=== PATIENT | female | born 1935 | race Caucasian/White ===

== ENCOUNTER 2017-03-02 14:00 | Inpatient (IN) | payer MEDICARE ==
[2017-03-08] MEDS ORDERED: Midazolam HCl 2 mg/2 ml Vial ONE (12:13)
[2017-03-08] MEDS ORDERED: Fentanyl 100 MCG/2 ML VIAL ONE ×5 (12:13→17:05)
[2017-03-08] MEDS ORDERED: Ropivacaine 0.2% HCl/PF 20 ML ONE (12:13)
[2017-03-08] MEDS ORDERED: Albuterol Sulfate 2.5 mg/3 ml Neb ONE (12:25)
[2017-03-08] MEDS ORDERED: Zolpidem Tartrate 5 MG TAB PO PRN (12:40)
[2017-03-08] MEDS ORDERED: Ropivacaine 0.2% 550 ML 550 ML NERVE BLCK SCH (12:40)
[2017-03-08] MEDS ORDERED: Promethazine HCl 25 MG/ML VIAL IM PRN ×2 (12:40→14:16)
[2017-03-08] MEDS ORDERED: Ondansetron HCl/PF 4 MG/2 ML Vial IVP PRN ×3 (12:40→15:08)
[2017-03-08] MEDS ORDERED: Fentanyl 100 MCG/2 ML VIAL SLOW IVP PRN ×3 (12:42→17:57)
[2017-03-08] MEDS ORDERED: HYDROcodone/Acetaminophen 10/325 mg Tablet PO PRN ×3 (13:05→17:57)
[2017-03-08] MEDS ORDERED: Lidocaine 2% PF 10 ML AMP (For Epidural Use) ONE (13:49)
[2017-03-08] MEDS ORDERED: Glycopyrrolate 0.2 MG/ML 5 ML SYRINGE ONE (13:49)
[2017-03-08] MEDS ORDERED: Propofol 200 MG/20 ML VIAL ONE (13:49)
[2017-03-08] MEDS ORDERED: Ondansetron HCl/PF 4 MG/2 ML Vial ONE (13:49)
[2017-03-08] MEDS ORDERED: Promethazine HCl 25 MG/ML VIAL SLOW IVP PRN (14:16)
[2017-03-08] MEDS ORDERED: Meperidine HCl/PF 25 MG/ML VIAL SLOW IVP PRN (15:08)
[2017-03-08] MEDS ORDERED: Bupivacaine 0.5% 10 ML VIAL ONE (16:02)
[2017-03-08] MEDS ORDERED: PROVENTIL INHALER 6.7 G (200 INHALATIONS) INH PRN (16:49)
[2017-03-08] MEDS ORDERED: OXYMORPHONE HCL 10 MG PO PRN (16:49)
[2017-03-08] MEDS ORDERED: Benzonatate 100 MG CAP PO PRN (17:00)
[2017-03-08] MEDS ORDERED: Ondansetron HCl/PF 4 MG/2 ML Vial IM PRN (17:57)
[2017-03-08] MEDS ORDERED: Acetaminophen 325 MG TAB PO PRN (17:57)
[2017-03-08] MEDS ORDERED: traMADol HCl 50 MG TAB PO PRN (17:57)
--- NOTE | 2017-03-08 18:09 | RAD ---
RIGHT KNEE 2 VIEWS: Date: 03/08/17 HISTORY: Status post right knee arthroplasty. FINDINGS/IMPRESSION: There are two views of the right knee which demonstrate changes compatible with arthroplasty. Alignm ent is near anatomic. POS: [facility]
[2017-03-08 18:44] VITALS: BMI 37.5
[2017-03-08] MEDS: HYDROcodone/Acetaminophen 10/325 mg Tablet PO SCH (19:11)
[2017-03-08] MEDS: HYDROcodone/Acetaminophen 10/325 mg Tablet PO PRN ×2 (19:15→23:41)
[2017-03-08] MEDS: Ketorolac Tromethamine 30 MG/ML VIAL IVP SCH ×2 (19:18→23:45)
--- NOTE | 2017-03-08 19:55 | PDOC.PN ---
- Subjective Encounter Start Date: 03/08/17 Encounter Start Time: 19:52 Pt seen for management of medical comorbidities, including hypertension. Denies chest pain, shortness of breath, fevers or chills. No nausea or vomiting. No fevers or chills. No abdo pain. - Objective MAR Reviewed: Yes Vital Signs & Weight: Vital Signs (12 hours) Temp Pulse Resp BP Pulse Ox 03/08/17 17:30 98.1 F 74 18 143/69 H 97 Weight Weight 247 lb Phys Exam - Physical Examination Obese HEENT: moist MMs, oral pharynx no lesions Neck: supple Respiratory: no wheezing, no rales, no rhonchi, clear to auscultation bilateral Cardiovascular: RRR, no rub Gastrointestinal: soft, positive bowel sounds Musculoskeletal: pulses present s/p R knee surgery Neurological: moves all 4 limbs Psychiatric: normal affect Skin: no rash Dx/Plan (1) HTN (hypertension) Code(s): I10 - ESSENTIAL (PRIMARY) HYPERTENSION Status: Chronic (2) MEJIA (obstructive sleep apnea) Code(s): G47.33 - OBSTRUCTIVE SLEEP APNEA (ADULT) (PEDIATRIC) Status: Chronic (3) COPD (chronic obstructive pulmonary disease) Status: Chronic (4) Chronic cough Code(s): R05 - COUGH Status: Chronic (5) Arthritis Code(s): M19.90 - UNSPECIFIED OSTEOARTHRITIS, UNSPECIFIED SITE Status: Chronic (6) Obesity (BMI 30-39.9) Code(s): E66.9 - OBESITY, UNSPECIFIED Status: Chronic - Plan PT/OT * . Monitor vital signs, titrate antihypertensives as needed. PRN IV hydralazine. Continue CPAP while asleep. Continue benzonatate for cough. O2 PRN. Continue bronchodilators. s/p R knee surgery. DVT prophylaxis and pain management per orthopedic service. Code status: Full Review of Systems - Review of Systems Constitutional: negative: Fever, Chills, Sweats, Weakness, Malaise Respiratory: Cough. negative: Dry, Shortness of Breath, Hemoptysis, SOB with Excertion, Pleuritic Pain, Sputum, Wheezing Cardiovascular: negative: Chest Pain, Palpitations, Orthopnea, Paroxysmal Noc. Dyspnea, Edema, Light Headedness - Medications/Allergies Allergies/Adverse Reactions: Allergies Allergy/AdvReac Type Severity Reaction Status Date / Time codeine Allergy Verified 07/06/14 14:12 NSAIDS (Non-Steroidal Allergy Anaphylaxis Verified 07/06/14 14:12 Anti-Inflamma Penicillins Allergy Severe Verified 07/06/14 14:12 Hives shellfish derived Allergy Verified 07/06/14 14:12 Medications: Current Medications Acetaminophen (Tylenol) 650 mg PO Q4H PRN PRN Reason: JOINER/T > 101F/Mild Pain (1-3) Hydrocodone Bitart/Acetaminophen ([place] 10/325) 1 tab PO BID-[facility] Last Admin: 03/08/17 19:11 Dose: Not Given Hydrocodone Bitart/Acetaminophen ([place] 10/325) 1 tab PO Q4H PRN PRN Reason: Mild Pain (1-3) Last Admin: 03/08/17 19:15 Dose: 1 tab Hydrocodone Bitart/Acetaminophen ([place] 10/325) 2 tab PO Q4H PRN PRN Reason: Moderate Pain (4-6) Albuterol Sulfate (Proventil Hfa) 1 puff INH Q4HR PRN PRN Reason: SOB &/or Wheezing Aspirin (Ecotrin) 325 mg PO BID [facility] Azithromycin (Zithromax) 250 mg PO DAILY [facility] Benzonatate (Tessalon) 100 mg PO PRN PRN PRN Reason: Cough Cefazolin Sodium (Ancef) 2 gm SLOW IVP Q8H [facility] Stop: 03/09/17 05:01 Celecoxib (Celebrex) 200 mg PO BID [facility] Cyanocobalamin (Vitamin B-12) 5,000 mcg PO DAILY [facility] Fentanyl (Sublimaze) 50 mcg SLOW IVP Q1H PRN PRN Reason: .BREAKTHROUGH PAIN Fentanyl (Sublimaze) 50 mcg SLOW IVP Q30MIN PRN PRN Reason: Severe Pain (7-10) Fentanyl (Sublimaze) 100 mcg SLOW IVP Q1H PRN PRN Reason: Severe Pain (7-10) Ferrous Gluconate (Fergon) 324 mg PO BID [facility] Fish Oil (Fish Oil) 1,000 mg PO BID [facility] HCTZ/Losartan Potassium (Hyzaar 100/25) 1 tab PO DAILY [facility] Ropivacaine (Ropivacaine 0.2% 550 Ml) 550 mls @ 10 mls/hr NERVE BLCK INF [facility] PRN Reason: As Directed Ketorolac Tromethamine (Toradol) 15 mg IVP Q6HR [facility] Stop: 03/09/17 18:01 Last Admin: 03/08/17 19:18 Dose: Not Given Montelukast Sodium (Singulair) 10 mg PO DAILY [facility] Morphine Sulfate (Morphine Sulfate) 4 mg SLOW IVP Q2H PRN PRN Reason: Moderate Pain (4-6) (Azelastine/Fluticasone [Dymista Nasal [place]] 1 [place]) 1 spray EA NARE BID [facility] (Oxymorphone Hcl [ (Opana] 10 Mg)) 10 mg PO Q6HR PRN PRN Reason: Pain (Red Yeast Rice [Red (Yeast Rice] 600 Mg)) 600 mg PO DAILY [facility] Ondansetron HCl (Zofran) 4 mg IVP Q6H PRN PRN Reason: Nausea/Vomiting Ondansetron HCl (Zofran) 4 mg IM Q6H PRN PRN Reason: Nausea/Vomiting Pantoprazole Sodium (Protonix) 40 mg PO BID [facility] Promethazine HCl (Phenergan) 12.5 mg IM Q4H PRN PRN Reason: Nausea Sertraline HCl (Zoloft) 50 mg PO DAILY [facility] Sodium Chloride (Flush - Normal Saline) 10 ml IVF PRN PRN PRN Reason: Saline Flush Tramadol HCl (Ultram) 100 mg PO Q6H PRN PRN Reason: Moderate Pain (4-6) Zolpidem Tartrate (Ambien) 5 mg PO HSPRN PRN PRN Reason: Insomnia
[2017-03-08] MEDS: Fish Oil 1,000 MG CAP PO SCH (20:35)
[2017-03-08] MEDS: Aspirin 325 mg Enteric Coated Tablet PO SCH (20:35)
[2017-03-08] MEDS: CeleCOXIB 100 MG CAP PO SCH (20:35)
[2017-03-08] MEDS: Ferrous Gluconate 324 MG TAB PO SCH (20:35)
[2017-03-08] MEDS ORDERED: FLUTICASONE EA NARE SCH (21:00)
[2017-03-08] MEDS ORDERED: AZELASTINE EA NARE SCH (21:00)
[2017-03-09] MEDS: HYDROcodone/Acetaminophen 10/325 mg Tablet PO PRN ×3 (05:33→23:01)
[2017-03-09 06:02] LABS: Hematocrit 36.3 % (36.0-47.0); Mean Platelet Volume 6.7 fL (7.4-10.4); Red Blood Cell (RBC) Count 4.05 mill/uL (4.20-5.40)
[2017-03-09] MEDS ORDERED: (Red Yeast Rice [Red Yeast Rice] 600 MG) PO SCH (09:00)
[2017-03-09] MEDS: HYDROcodone/Acetaminophen 10/325 mg Tablet PO SCH ×2 (09:21→18:22)
[2017-03-09] MEDS: Montelukast Sodium 10 mg Tablet PO SCH (09:23)
[2017-03-09] MEDS: Cyanocobalamin (Vitamin B-12) 1,000 MCG TAB PO SCH (09:24)
[2017-03-09] MEDS: Ferrous Gluconate 324 MG TAB PO SCH ×2 (09:24→20:09)
[2017-03-09] MEDS: Aspirin 325 mg Enteric Coated Tablet PO SCH ×2 (09:24→20:09)
[2017-03-09] MEDS: Fish Oil 1,000 MG CAP PO SCH ×2 (09:24→20:09)
[2017-03-09] MEDS: CeleCOXIB 100 MG CAP PO SCH ×2 (09:26→20:08)
[2017-03-09] MEDS: Azithromycin 250 MG TAB PO SCH (09:26)
[2017-03-09] MEDS: Losartan/Hydrochlorothiazide 100 mg/25 mg Tablet PO SCH (09:28)
--- NOTE | 2017-03-09 10:29 | PDOC.PN ---
- Subjective Encounter Start Date: 03/09/17 Encounter Start Time: 08:00 Pt seen for followup re; hypertension. Denies chest pain, shortness of breath, chills. - Objective MAR Reviewed: Yes Vital Signs & Weight: Vital Signs (12 hours) Temp Pulse Resp BP Pulse Ox 03/09/17 08:00 97.9 F 75 18 101/45 L 90 L 03/09/17 04:48 97.6 F 63 18 123/62 94 L 03/09/17 03:30 98.1 F 58 L 12 114/49 L 93 L 03/09/17 00:00 98.4 F 68 19 139/65 96 Weight Weight 247 lb I&O: 03/08/17 03/09/17 03/10/17 06:59 06:59 06:59 Intake Total 1700 Output Total 1400 Balance 300 Result Diagrams: 03/09/17 05:42 Phys Exam - Physical Examination Obese HEENT: moist MMs, oral pharynx no lesions Neck: supple Respiratory: no wheezing, no rales, no rhonchi, clear to auscultation bilateral Cardiovascular: RRR, no rub Gastrointestinal: soft, non-tender Musculoskeletal: pulses present s/p R knee surgery Neurological: moves all 4 limbs Psychiatric: normal affect Skin: no rash Dx/Plan (1) HTN (hypertension) Code(s): I10 - ESSENTIAL (PRIMARY) HYPERTENSION Status: Chronic (2) MEJIA (obstructive sleep apnea) Code(s): G47.33 - OBSTRUCTIVE SLEEP APNEA (ADULT) (PEDIATRIC) Status: Chronic (3) COPD (chronic obstructive pulmonary disease) Status: Chronic (4) Chronic cough Code(s): R05 - COUGH Status: Chronic (5) Arthritis Code(s): M19.90 - UNSPECIFIED OSTEOARTHRITIS, UNSPECIFIED SITE Status: Chronic (6) Obesity (BMI 30-39.9) Code(s): E66.9 - OBESITY, UNSPECIFIED Status: Chronic - Plan PT/OT, out of bed/ambulate * . Monitor vital signs and titrate antihypertensives. Did not need hydralazine last night. CPAP use while asleep. Review of Systems - Review of Systems Constitutional: negative: Fever, Chills, Sweats, Weakness, Malaise Respiratory: negative: Cough, Dry, Shortness of Breath, Hemoptysis, SOB with Excertion, Pleuritic Pain, Sputum, Wheezing Cardiovascular: negative: Chest Pain, Palpitations, Orthopnea, Paroxysmal Noc. Dyspnea, Edema, Light Headedness - Medications/Allergies Allergies/Adverse Reactions: Allergies Allergy/AdvReac Type Severity Reaction Status Date / Time codeine Allergy Verified 07/06/14 14:12 NSAIDS (Non-Steroidal Allergy Anaphylaxis Verified 07/06/14 14:12 Anti-Inflamma Penicillins Allergy Severe Verified 07/06/14 14:12 Hives shellfish derived Allergy Verified 07/06/14 14:12 Medications: Current Medications Acetaminophen (Tylenol) 650 mg PO Q4H PRN PRN Reason: JOINER/T > 101F/Mild Pain (1-3) Hydrocodone Bitart/Acetaminophen ([place] 10/325) 1 tab PO BID-[facility] Last Admin: 03/09/17 09:21 Dose: 1 tab Hydrocodone Bitart/Acetaminophen ([place] 10/325) 1 tab PO Q4H PRN PRN Reason: Mild Pain (1-3) Last Admin: 03/09/17 05:33 Dose: 1 tab Hydrocodone Bitart/Acetaminophen ([place] 10/325) 2 tab PO Q4H PRN PRN Reason: Moderate Pain (4-6) Albuterol Sulfate (Proventil Hfa) 1 puff INH Q4HR PRN PRN Reason: SOB &/or Wheezing Aspirin (Ecotrin) 325 mg PO BID [facility] Last Admin: 03/09/17 09:24 Dose: 325 mg Azithromycin (Zithromax) 250 mg PO DAILY [facility] Last Admin: 03/09/17 09:26 Dose: 250 mg Benzonatate (Tessalon) 100 mg PO PRN PRN PRN Reason: Cough Celecoxib (Celebrex) 200 mg PO BID [facility] Last Admin: 03/09/17 09:26 Dose: 200 mg Cyanocobalamin (Vitamin B-12) 5,000 mcg PO DAILY [facility] Last Admin: 03/09/17 09:24 Dose: Not Given Fentanyl (Sublimaze) 50 mcg SLOW IVP Q1H PRN PRN Reason: .BREAKTHROUGH PAIN Fentanyl (Sublimaze) 50 mcg SLOW IVP Q30MIN PRN PRN Reason: Severe Pain (7-10) Fentanyl (Sublimaze) 100 mcg SLOW IVP Q1H PRN PRN Reason: Severe Pain (7-10) Ferrous Gluconate (Fergon) 324 mg PO BID [facility] Last Admin: 03/09/17 09:24 Dose: 324 mg Fish Oil (Fish Oil) 1,000 mg PO BID [facility] Last Admin: 03/09/17 09:24 Dose: 1,000 mg Fluticasone Propionate (Flonase Nasal [place]) 0 gm NASAL BID [facility] HCTZ/Losartan Potassium (Hyzaar 100/25) 1 tab PO DAILY [facility] Last Admin: 03/09/17 09:28 Dose: Not Given Ropivacaine (Ropivacaine 0.2% 550 Ml) 550 mls @ 10 mls/hr NERVE BLCK INF [facility] PRN Reason: As Directed Montelukast Sodium (Singulair) 10 mg PO DAILY [facility] Last Admin: 03/09/17 09:23 Dose: 10 mg Morphine Sulfate (Morphine Sulfate) 4 mg SLOW IVP Q2H PRN PRN Reason: Moderate Pain (4-6) Ondansetron HCl (Zofran) 4 mg IVP Q6H PRN PRN Reason: Nausea/Vomiting Ondansetron HCl (Zofran) 4 mg IM Q6H PRN PRN Reason: Nausea/Vomiting Pantoprazole Sodium (Protonix) 40 mg PO BID [facility] Last Admin: 03/09/17 09:26 Dose: 40 mg Promethazine HCl (Phenergan) 12.5 mg IM Q4H PRN PRN Reason: Nausea Sertraline HCl (Zoloft) 50 mg PO DAILY [facility] Last Admin: 03/09/17 09:25 Dose: 50 mg Sodium Chloride (Flush - Normal Saline) 10 ml IVF PRN PRN PRN Reason: Saline Flush Tramadol HCl (Ultram) 100 mg PO Q6H PRN PRN Reason: Moderate Pain (4-6) Zolpidem Tartrate (Ambien) 5 mg PO HSPRN PRN PRN Reason: Insomnia
[2017-03-09] MEDS: Fluticasone Propionate Nasal Spray 16 gm Bottle NASAL SCH ×2 (12:19→20:09)
[2017-03-09] MEDS ORDERED: Docusate 100 MG CAP PO SCH (20:45)
[2017-03-10] MEDS: HYDROcodone/Acetaminophen 10/325 mg Tablet PO PRN ×2 (05:14→15:32)
[2017-03-10 05:45] LABS: Hematocrit 34.6 % (36.0-47.0); Mean Platelet Volume 6.9 fL (7.4-10.4); Red Blood Cell (RBC) Count 3.86 mill/uL (4.20-5.40); White Blood Cell (WBC) Count 7.2 thou/uL (4.8-10.8)
--- NOTE | 2017-03-10 09:21 | OP ---
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 POSTOPERATIVE DIAGNOSIS: Failed unicompartmental knee replacement with tricompartmental degenerativ e changes, right knee. SURGICAL PROCEDURE: Revision total knee arthroplasty, right. ANESTHESIA: General. SURGEON: Oliverio Gardner M.D. VOTING MACHINE MECHANIC: Niko Hartmann PA-C. TOURNIQUET TIME: 82 minutes at 300 mmHg. BLOOD LOSS: Less than 20 mL IMPLANTS: DePuy Sigma system was used with a size 3 femur, size 3 tibia with a 13 x 30 stem, a 10 m m poly insert, and a 35 mm all-poly patellar button. COMPLICATIONS: None. DRAINS: None. SPECIMEN: None. OUTCOME: Satisfactory. INDICATIONS: Patient is a pleasant 82-year-old lady, who is status post unicompartmental knee repla cement many years ago, now with some tricompartmental degenerative changes. The knee has become inc reasingly painful. She is status post revision of left knee and now would like to proceed with revi teresa of this right knee. Informed consent has been obtained. I believe all questions answered. PROCEDURE: The patient was brought to the operating room and a timeout performed, followed by induc tion of general anesthesia. The patient was positioned supine on the OR table and then a sterile pr ep and drape was performed of the right lower extremity. The limb was then exsanguinated with Esmar ch bandage, tourniquet inflated to 300 mmHg. A midline anterior knee incision was made. After skin was incised, dissection was carried down to the underlying quadriceps mechanism, and a medial parap atellar arthrotomy performed. The patella was inverted and then remnants of ACL as well as lateral meniscus excised. The medial compartment replacement was identified and using an osteotome with car e to not remove any excess bone, the femoral component was removed without difficulty. This was the n followed by easy removal of the poly insert on the tibia. Some of the cement was also debrided combs ch that clean bone was encountered. Next, a step drill was used to obtain a starting point at the d istal femur. This was then followed by pinning of the distal femoral cutting block, taking a 10 mm cut to allow for resection of the gap where the medial component was placed. Once this cut was perf ormed, there was found to be a cortical rim of bone medially that would allow for stabilization of t he total knee component. Next, a four-in-one cutting block was pinned to the distal femur and final cuts performed giving good surface for cementing of the femoral component without need for augments . Next, attention was placed to the proximal tibia. A step drill again used to obtain intramedulla ry alignment. The cutting jig was then pinned to the anterior tibia with it measured such that ther e would be a 1 mm resection of the surface from below the medial poly insert. Once performed, this was sized to a size 3 with good rim fit. A cruciform punch was then used to prepare the proximal ti dylon for a short stem. The trial tibial component was left in place and then the femoral trial was i nserted and a 10 mm insert provided excellent flexion and extension gaps of the knee that would come into full extension. Next, the patella was resurfaced freehand and sized to a size 35 with peg hol es drilled into the patella. Peg holes also drilled through the femoral component at this time. Ne xt, all trial components were removed from the knee and the knee was irrigated with 5 liters of norm al saline with antibiotic irrigant added. Next, cement was mixed and then the tibial tray with s tem was cemented in place followed by cementing of the femoral component. Excess cement was removed and then the 10 mm poly insert was inserted. The knee was brought into full extension with axial c ompression applied while the patellar component was cemented in place and held with a clamp. Once t he cement had cured and all excess cement removed, the knee was brought through range of motion and found to have excellent stability and normal rollback. Next wound closure performed. This was done with #2 Vicryl for the quadriceps mechanism, 2-0 Vicryl subcutaneously, and claudia for the skin. A Xeroform gauze, Webril, and Dusty wrap dressing was applied to the knee and then tourniquet was let down with total time of 82 minutes. The patient was then transferred to recovery room in stable con dition. There were no complications and she tolerated the procedure well.
[2017-03-10] MEDS: HYDROcodone/Acetaminophen 10/325 mg Tablet PO SCH ×2 (09:41→17:20)
[2017-03-10] MEDS: Fluticasone Propionate Nasal Spray 16 gm Bottle NASAL SCH ×2 (09:42→20:37)
[2017-03-10] MEDS: Fish Oil 1,000 MG CAP PO SCH ×2 (09:46→20:31)
[2017-03-10] MEDS: Azithromycin 250 MG TAB PO SCH (09:48)
[2017-03-10] MEDS: Ferrous Gluconate 324 MG TAB PO SCH ×2 (09:49→20:31)
[2017-03-10] MEDS: Docusate 100 MG CAP PO SCH ×2 (09:49→20:31)
[2017-03-10] MEDS: CeleCOXIB 100 MG CAP PO SCH ×2 (09:49→20:31)
[2017-03-10] MEDS: Montelukast Sodium 10 mg Tablet PO SCH (09:49)
[2017-03-10] MEDS: Aspirin 325 mg Enteric Coated Tablet PO SCH ×2 (09:49→20:30)
[2017-03-10] MEDS: Cyanocobalamin (Vitamin B-12) 1,000 MCG TAB PO SCH (10:03)
[2017-03-10] MEDS: Losartan/Hydrochlorothiazide 100 mg/25 mg Tablet PO SCH (10:03)
[2017-03-10] MEDS ORDERED: OXYMORPHONE 10 MG PO SCH (14:15)
--- NOTE | 2017-03-10 16:58 | PDOC.PN ---
- Subjective Encounter Start Date: 03/10/17 Encounter Start Time: 09:40 - Objective MAR Reviewed: Yes Vital Signs & Weight: Vital Signs (12 hours) Temp Pulse Resp BP Pulse Ox 03/10/17 12:00 98.1 F 70 20 145/64 H 99 03/10/17 08:00 98.5 F 67 16 142/57 H 96 Weight Weight 247 lb I&O: 03/09/17 03/10/17 03/11/17 06:59 06:59 06:59 Intake Total 1700 1950 Output Total 1400 2950 Balance 300 -1000 Result Diagrams: 03/10/17 05:24 Phys Exam - Physical Examination Obesity HEENT: moist MMs Respiratory: clear to auscultation bilateral Cardiovascular: RRR Gastrointestinal: soft s/p R knee surgery Neurological: moves all 4 limbs Psychiatric: normal affect Dx/Plan (1) HTN (hypertension) Code(s): I10 - ESSENTIAL (PRIMARY) HYPERTENSION Status: Chronic (2) MEJIA (obstructive sleep apnea) Code(s): G47.33 - OBSTRUCTIVE SLEEP APNEA (ADULT) (PEDIATRIC) Status: Chronic (3) COPD (chronic obstructive pulmonary disease) Status: Chronic (4) Chronic cough Code(s): R05 - COUGH Status: Chronic (5) Arthritis Code(s): M19.90 - UNSPECIFIED OSTEOARTHRITIS, UNSPECIFIED SITE Status: Chronic (6) Obesity (BMI 30-39.9) Code(s): E66.9 - OBESITY, UNSPECIFIED Status: Chronic - Plan PT/OT, out of bed/ambulate * . HTN controlled, continue to monitor vital signs. COPD stable. Using CPAP at night. Pain management and DVT prophylaxis per orthopedic service. Review of Systems - Medications/Allergies Allergies/Adverse Reactions: Allergies Allergy/AdvReac Type Severity Reaction Status Date / Time codeine Allergy Verified 07/06/14 14:12 NSAIDS (Non-Steroidal Allergy Anaphylaxis Verified 07/06/14 14:12 Anti-Inflamma Penicillins Allergy Severe Verified 07/06/14 14:12 Hives shellfish derived Allergy Verified 07/06/14 14:12 Medications: Current Medications Acetaminophen (Tylenol) 650 mg PO Q4H PRN PRN Reason: JOINER/T > 101F/Mild Pain (1-3) Hydrocodone Bitart/Acetaminophen ([place] 10/325) 1 tab PO BID-[facility] Last Admin: 03/10/17 09:41 Dose: 1 tab Hydrocodone Bitart/Acetaminophen ([place] 10/325) 1 tab PO Q4H PRN PRN Reason: Mild Pain (1-3) Last Admin: 03/10/17 15:32 Dose: 1 tab Hydrocodone Bitart/Acetaminophen ([place] 10/325) 2 tab PO Q4H PRN PRN Reason: Moderate Pain (4-6) Albuterol Sulfate (Proventil Hfa) 1 puff INH Q4HR PRN PRN Reason: SOB &/or Wheezing Aspirin (Ecotrin) 325 mg PO BID [facility] Last Admin: 03/10/17 09:49 Dose: 325 mg Azithromycin (Zithromax) 250 mg PO DAILY [facility] Last Admin: 03/10/17 09:48 Dose: 250 mg Benzonatate (Tessalon) 100 mg PO PRN PRN PRN Reason: Cough Celecoxib (Celebrex) 200 mg PO BID [facility] Last Admin: 03/10/17 09:49 Dose: 200 mg Cyanocobalamin (Vitamin B-12) 5,000 mcg PO DAILY [facility] Last Admin: 03/10/17 10:03 Dose: Not Given Docusate Sodium (Colace) 100 mg PO BID [facility] Last Admin: 03/10/17 09:49 Dose: 100 mg Fentanyl (Sublimaze) 50 mcg SLOW IVP Q1H PRN PRN Reason: .BREAKTHROUGH PAIN Fentanyl (Sublimaze) 50 mcg SLOW IVP Q30MIN PRN PRN Reason: Severe Pain (7-10) Fentanyl (Sublimaze) 100 mcg SLOW IVP Q1H PRN PRN Reason: Severe Pain (7-10) Ferrous Gluconate (Fergon) 324 mg PO BID [facility] Last Admin: 03/10/17 09:49 Dose: 324 mg Fish Oil (Fish Oil) 1,000 mg PO BID [facility] Last Admin: 03/10/17 09:46 Dose: 1,000 mg Fluticasone Propionate (Flonase Nasal [place]) 0 gm NASAL BID [facility] Last Admin: 03/10/17 09:42 Dose: 1 spr HCTZ/Losartan Potassium (Hyzaar 100/25) 1 tab PO DAILY [facility] Last Admin: 03/10/17 10:03 Dose: Not Given Ropivacaine (Ropivacaine 0.2% 550 Ml) 550 mls @ 10 mls/hr NERVE BLCK INF [facility] PRN Reason: As Directed Montelukast Sodium (Singulair) 10 mg PO DAILY [facility] Last Admin: 03/10/17 09:49 Dose: 10 mg Morphine Sulfate (Morphine Sulfate) 4 mg SLOW IVP Q2H PRN PRN Reason: Moderate Pain (4-6) Ondansetron HCl (Zofran) 4 mg IVP Q6H PRN PRN Reason: Nausea/Vomiting Last Admin: 03/10/17 09:55 Dose: 4 mg Ondansetron HCl (Zofran) 4 mg IM Q6H PRN PRN Reason: Nausea/Vomiting Pantoprazole Sodium (Protonix) 40 mg PO BID [facility] Last Admin: 03/10/17 09:48 Dose: 40 mg Oxymorphone (Opana (Er) 10 Mg Tab) 0 each PO 0600,1800 [facility] Promethazine HCl (Phenergan) 12.5 mg IM Q4H PRN PRN Reason: Nausea Sertraline HCl (Zoloft) 50 mg PO DAILY [facility] Last Admin: 03/10/17 09:47 Dose: 50 mg Sodium Chloride (Flush - Normal Saline) 10 ml IVF PRN PRN PRN Reason: Saline Flush Last Admin: 03/10/17 09:56 Dose: 10 ml Tramadol HCl (Ultram) 100 mg PO Q6H PRN PRN Reason: Moderate Pain (4-6) Zolpidem Tartrate (Ambien) 5 mg PO HSPRN PRN PRN Reason: Insomnia
[2017-03-10] MEDS: OXYMORPHONE 10 MG PO SCH (18:39)
[2017-03-11] MEDS: OXYMORPHONE 10 MG PO SCH (05:29)
[2017-03-11 06:08] LABS: Hematocrit 32.6 % (36.0-47.0); Mean Platelet Volume 6.8 fL (7.4-10.4); Red Blood Cell (RBC) Count 3.61 mill/uL (4.20-5.40); White Blood Cell (WBC) Count 6.7 thou/uL (4.8-10.8)
[2017-03-11 08:25] VITALS: BP 130/51; TEMP 98.2
[2017-03-11] MEDS: Azithromycin 250 MG TAB PO SCH (08:47)
[2017-03-11] MEDS: CeleCOXIB 100 MG CAP PO SCH (08:48)
[2017-03-11] MEDS: Docusate 100 MG CAP PO SCH (08:48)
[2017-03-11] MEDS: Losartan/Hydrochlorothiazide 100 mg/25 mg Tablet PO SCH (08:49)
[2017-03-11] MEDS: Fish Oil 1,000 MG CAP PO SCH (08:49)
[2017-03-11] MEDS: Montelukast Sodium 10 mg Tablet PO SCH (08:50)
[2017-03-11] MEDS: Aspirin 325 mg Enteric Coated Tablet PO SCH (08:50)
[2017-03-11] MEDS: Ferrous Gluconate 324 MG TAB PO SCH (08:50)
[2017-03-11] MEDS: Cyanocobalamin (Vitamin B-12) 1,000 MCG TAB PO SCH (08:51)
[2017-03-11] MEDS: Fluticasone Propionate Nasal Spray 16 gm Bottle NASAL SCH (08:52)
[2017-03-11] MEDS: HYDROcodone/Acetaminophen 10/325 mg Tablet PO SCH (09:05)
--- NOTE | 2017-03-11 09:21 | DIS ---
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 PRINCIPAL PROCEDURE: On 03/08/2017, revision total knee arthroplasty, right. COMPLICATIONS: None. INFECTIONS: None. BRIEF HISTORY OF PRESENT ILLNESS: The patient is a pleasant 82-year-old lady status post unicompart mental knee replacement. She has now gone on to develop tricompartmental disease and would like to proceed with revision surgery. I will refer you to the H\T\P for details of her admission history a nd physical. HOSPITAL COURSE: The patient was admitted on 03/08/2017 and on the day of admission underwent the sandip rothman described surgical procedure. Postop day #1, she had a hematocrit of 36, was mobilizing slowly with physical therapy. Pain management was suboptimal and was adjusted. By postop day #2, her lucila n was much more tolerable. Her hematocrit was 34.6 and she was mobilizing with therapy, but not ind ependent. By postop day #3, her hematocrit was 32.6, felt to be stable and she was doing much parvez r with physical therapy. As such, she was discharged to home on 03/11/2017. DISCHARGE MEDICATIONS: To resume all of her normal outpatient medications with the addition of aspi rin 81 mg p.o. q.12 hours for 4 weeks. I would like her to follow up in the office in 7-10 days for staple removal. She will be weightbearing as tolerated with a walker. We will have home health se t up for ongoing range of motion exercises, gait training, and safety checks for home. Should she e xperience fevers, chills, increasing pain, wound drainage, she should call or return for reevaluatio n.
--- NOTE | 2017-03-11 10:45 | PDOC.PN ---
- Subjective Encounter Start Date: 03/11/17 Encounter Start Time: 08:00 Pt seen for followup re: hypertension. Says she feels better. Denies nausea, vomiting or diarrhea. - Objective MAR Reviewed: Yes Vital Signs & Weight: Vital Signs (12 hours) Temp Pulse Resp BP Pulse Ox 03/11/17 07:55 98.2 F 64 12 130/51 L 93 L 03/11/17 04:28 99.5 F 64 17 123/56 L 95 03/11/17 00:00 98.1 F 72 18 121/54 L 95 Weight Weight 247 lb I&O: 03/10/17 03/11/17 03/12/17 06:59 06:59 06:59 Intake Total 1950 1370 Output Total 2950 Balance -1000 1370 Result Diagrams: 03/11/17 06:00 Phys Exam - Physical Examination HEENT: moist MMs, oral pharynx no lesions Neck: supple Respiratory: clear to auscultation bilateral Cardiovascular: RRR Gastrointestinal: soft s/p R knee surgery Neurological: moves all 4 limbs Psychiatric: normal affect Dx/Plan (1) HTN (hypertension) Code(s): I10 - ESSENTIAL (PRIMARY) HYPERTENSION Status: Chronic (2) MEJIA (obstructive sleep apnea) Code(s): G47.33 - OBSTRUCTIVE SLEEP APNEA (ADULT) (PEDIATRIC) Status: Chronic (3) COPD (chronic obstructive pulmonary disease) Status: Chronic (4) Chronic cough Code(s): R05 - COUGH Status: Chronic (5) Arthritis Code(s): M19.90 - UNSPECIFIED OSTEOARTHRITIS, UNSPECIFIED SITE Status: Chronic (6) Obesity (BMI 30-39.9) Code(s): E66.9 - OBESITY, UNSPECIFIED Status: Chronic - Plan * . BP stable. Using CPAP. Plan for discharge noted, will sign off. Review of Systems - Review of Systems Constitutional: negative: Fever, Chills, Sweats, Weakness, Malaise Respiratory: negative: Cough, Dry, Shortness of Breath, Hemoptysis, SOB with Excertion, Pleuritic Pain, Sputum, Wheezing Cardiovascular: negative: Chest Pain, Palpitations, Orthopnea, Paroxysmal Noc. Dyspnea, Edema, Light Headedness - Medications/Allergies Allergies/Adverse Reactions: Allergies Allergy/AdvReac Type Severity Reaction Status Date / Time codeine Allergy Verified 07/06/14 14:12 NSAIDS (Non-Steroidal Allergy Anaphylaxis Verified 07/06/14 14:12 Anti-Inflamma Penicillins Allergy Severe Verified 07/06/14 14:12 Hives shellfish derived Allergy Verified 07/06/14 14:12 Medications: Current Medications Acetaminophen (Tylenol) 650 mg PO Q4H PRN PRN Reason: JOINER/T > 101F/Mild Pain (1-3) Hydrocodone Bitart/Acetaminophen ([place] 10/325) 1 tab PO BID-[facility] Last Admin: 03/11/17 09:05 Dose: Not Given Hydrocodone Bitart/Acetaminophen ([place]a 10/325) 1 tab PO Q4H PRN PRN Reason: Mild Pain (1-3) Last Admin: 03/10/17 15:32 Dose: 1 tab Hydrocodone Bitart/Acetaminophen ([place]a 10/325) 2 tab PO Q4H PRN PRN Reason: Moderate Pain (4-6) Albuterol Sulfate (Proventil Hfa) 1 puff INH Q4HR PRN PRN Reason: SOB &/or Wheezing Aspirin (Ecotrin) 325 mg PO BID [facility] Last Admin: 03/11/17 08:50 Dose: 325 mg Azithromycin (Zithromax) 250 mg PO DAILY [facility] Last Admin: 03/11/17 08:47 Dose: 250 mg Benzonatate (Tessalon) 100 mg PO PRN PRN PRN Reason: Cough Celecoxib (Celebrex) 200 mg PO BID [facility] Last Admin: 03/11/17 08:48 Dose: 200 mg Cyanocobalamin (Vitamin B-12) 5,000 mcg PO DAILY [facility] Last Admin: 03/11/17 08:51 Dose: Not Given Docusate Sodium (Colace) 100 mg PO BID [facility] Last Admin: 03/11/17 08:48 Dose: 100 mg Fentanyl (Sublimaze) 50 mcg SLOW IVP Q1H PRN PRN Reason: .BREAKTHROUGH PAIN Fentanyl (Sublimaze) 50 mcg SLOW IVP Q30MIN PRN PRN Reason: Severe Pain (7-10) Fentanyl (Sublimaze) 100 mcg SLOW IVP Q1H PRN PRN Reason: Severe Pain (7-10) Ferrous Gluconate (Fergon) 324 mg PO BID [facility] Last Admin: 03/11/17 08:50 Dose: 324 mg Fish Oil (Fish Oil) 1,000 mg PO BID [facility] Last Admin: 03/11/17 08:49 Dose: 1,000 mg Fluticasone Propionate (Flonase Nasal [place]) 0 gm NASAL BID [facility] Last Admin: 03/11/17 08:52 Dose: 1 spr HCTZ/Losartan Potassium (Hyzaar 100/25) 1 tab PO DAILY [facility] Last Admin: 03/11/17 08:49 Dose: Not Given Ropivacaine (Ropivacaine 0.2% 550 Ml) 550 mls @ 10 mls/hr NERVE BLCK INF [facility] PRN Reason: As Directed Montelukast Sodium (Singulair) 10 mg PO DAILY [facility] Last Admin: 03/11/17 08:50 Dose: 10 mg Morphine Sulfate (Morphine Sulfate) 4 mg SLOW IVP Q2H PRN PRN Reason: Moderate Pain (4-6) Ondansetron HCl (Zofran) 4 mg IVP Q6H PRN PRN Reason: Nausea/Vomiting Last Admin: 03/10/17 09:55 Dose: 4 mg Ondansetron HCl (Zofran) 4 mg IM Q6H PRN PRN Reason: Nausea/Vomiting Pantoprazole Sodium (Protonix) 40 mg PO BID [facility] Last Admin: 03/11/17 08:49 Dose: 40 mg Oxymorphone (Opana (Er) 10 Mg Tab) 0 each PO 0600,1800 [facility] Last Admin: 03/11/17 05:29 Dose: 1 each Promethazine HCl (Phenergan) 12.5 mg IM Q4H PRN PRN Reason: Nausea Sertraline HCl (Zoloft) 50 mg PO DAILY [facility] Last Admin: 03/11/17 08:49 Dose: 50 mg Sodium Chloride (Flush - Normal Saline) 10 ml IVF PRN PRN PRN Reason: Saline Flush Last Admin: 03/10/17 09:56 Dose: 10 ml Tramadol HCl (Ultram) 100 mg PO Q6H PRN PRN Reason: Moderate Pain (4-6) Zolpidem Tartrate (Ambien) 5 mg PO HSPRN PRN PRN Reason: Insomnia
[2017-03-11] MEDS: HYDROcodone/Acetaminophen 10/325 mg Tablet PO PRN (11:43)
== END 2017-03-11 12:35 | disposition home or self-care (01) | DRG 468 ==
LOC: SJJU 03-08 10:51 → SURG A 03-08 17:53
PROVIDERS: ADMIT Orthopaedic Surgery; ATTEND Orthopaedic Surgery
PROC: 0SPC0JZ Removal of Synthetic Substitute from Right Knee Joint, Open Approach (ICD-10-PCS; principal; 2017-03-08)
PROC: 0SRC0J9 Replacement of Right Knee Joint with Synthetic Substitute, Cemented, Open Approach (ICD-10-PCS; 2017-03-08)
PROC: 3E0T3BZ Introduction of Anesthetic Agent into Peripheral Nerves and Plexi, Percutaneous Approach (ICD-10-PCS; 2017-03-08)
DX: M17.11 Unilateral primary osteoarthritis, right knee (principal); J44.9 Chronic obstructive pulmonary disease, unspecified; I10 Essential (primary) hypertension; Z79.82 Long term (current) use of aspirin; Z96.653 Presence of artificial knee joint, bilateral; Z96.612 Presence of left artificial shoulder joint; K21.9 Gastro-esophageal reflux disease without esophagitis; M10.9 Gout, unspecified; G43.909 Migraine, unspecified, not intractable, without status migrainosus; Z88.6 Allergy status to analgesic agent; Z88.5 Allergy status to narcotic agent; Z88.0 Allergy status to penicillin; G47.33 Obstructive sleep apnea (adult) (pediatric); E66.9 Obesity, unspecified; Z68.37 Body mass index [BMI] 37.0-37.9, adult
CPT/HCPCS: 36415; 85027; 93005; 93010; A4306; C1713; C1776; G8978-GP-CL; G8979-GP-CI; G8987-GO-CK; G8988-GO-CI; J1885; J2001; J2250; J2405; J2704; J2795; J3010; J3370; J3490; J7611

== ENCOUNTER 2017-03-02 14:42 | Outpatient (CLI) | payer MEDICARE ==
[2017-03-02 15:51] LABS: PTT 28.5 SEC (22.9-36.1); Prothrombin Time 13.6 SEC (12.0-14.7)
[2017-03-02 16:00] LABS: Bilirubin Negative (Negative); Blood, Urine Trace (Negative); Glucose, Urine (Dipstick) Negative (Negative); Ketone, Urine Negative (Negative); Nitrite Negative (Negative); Protein, Urine (Dipstick) Trace mg/dL (Neg-Trace)
[2017-03-02 16:02] LABS: ALT (SGPT) 38 U/L (8-55); AST (SGOT) 28 U/L (5-34); Alkaline Phosphatase 119 U/L (40-150); Anion Gap 14 mmol/L (10-20); BUN (Urea Nitrogen) 20 mg/dL (9.8-20.1); Bilirubin, Total 0.7 mg/dL (0.2-1.2); Calc. Creatinine Clearance 0 mL/min (70-130); Calcium 9.3 mg/dL (7.8-10.44); Carbon Dioxide 29 mmol/L (23-31); Chloride 100 mmol/L (98-107); Estimated GFR-MDRD 50; Globulin 2.3 g/dL (2.4-3.5); Protein, Total 6.2 g/dL (6.0-8.3)
[2017-03-02 16:07] LABS: Bacteria/HPF None Seen HPF (None Seen); Hyaline Casts/LPF 0-3 HYALINE CAST LPF (0-3 Hyaline); Squamous Epithelial 0-3 HPF (0-3); WBC/HPF None Seen HPF (0-3)
--- NOTE | 2017-03-02 18:19 | RAD ---
PA AND LATERAL CHEST: 03/02/17 HISTORY: Preop. Heart size is enlarged. Mediastinal structures are unremarkable. Atherosclerotic changes of the aort a. The lungs are clear of infiltrates. Postoperative changes of both shoulders are noted. IMPRESSION: Mild cardiomegaly. POS: [facility]
== END 2017-03-02 14:43 | disposition home or self-care (01) ==
LOC: LABBT 14:42
PROVIDERS: ATTEND Orthopaedic Surgery
DX: Z01.818 Encounter for other preprocedural examination (principal); Z96.651 Presence of right artificial knee joint
CPT/HCPCS: 71020; 80053; 81001; 85610; 85730; 87086; 93005; 93010

== ENCOUNTER 2017-04-29 13:44 | Emergency (ER) | payer MEDICARE ==
[2017-04-29 14:28] LABS: #Basophils 0.1 thou/uL (0.0-0.2); #Eosinphils 0.1 thou/uL (0.0-0.7); #Monocytes 0.5 thou/uL (0.11-0.59); #Neutrophils 3.9 thou/uL (1.40-6.50); %Basophils 1.2 % (0.0-1.0); %Eosinophils 0.9 % (0.0-10.0); %Lymphocytes 30.3 % (21.0-51.0); %Monocytes 8.1 % (0.0-10.0); Mean Platelet Volume 6.2 fL (7.4-10.4); White Blood Cell (WBC) Count 6.5 thou/uL (4.8-10.8)
[2017-04-29 14:41] LABS: Anion Gap 17 mmol/L (10-20); BUN (Urea Nitrogen) 19 mg/dL (9.8-20.1); Calc. Creatinine Clearance 0 mL/min (70-130); Calcium 9.4 mg/dL (7.8-10.44); Carbon Dioxide 23 mmol/L (23-31); Chloride 103 mmol/L (98-107); Estimated GFR-MDRD 59
[2017-04-29 14:47] LABS: Troponin I Less than 0.010 ng/mL (< 0.028)
--- NOTE | 2017-06-02 13:49 | EKG ---
Test Reason : Blood Pressure : / mmHG Vent. Rate : 063 BPM Atrial Rate : 063 BPM P-R Int : 202 ms QRS Dur : 094 ms QT Int : 432 ms P-R-T Axes : 067 -22 080 degrees QTc Int : 442 ms Age and gender specific ECG analysis Normal sinus rhythm Normal ECG Confirmed by ROBERT BERMUDEZ ([id number]), fan mail editor TOM GRANDA ([id number] on 06/02/2017 1:48:49 PM Referred By: Confirmed By:ROBERT BERMUDEZ
== END 2017-04-29 15:48 | disposition home or self-care (01) ==
LOC: SCSER 13:44
DX: F11.23 Opioid dependence with withdrawal (principal); R19.7 Diarrhea, unspecified; J44.9 Chronic obstructive pulmonary disease, unspecified; I10 Essential (primary) hypertension; M19.90 Unspecified osteoarthritis, unspecified site; F32.9 Major depressive disorder, single episode, unspecified; Z79.82 Long term (current) use of aspirin; Z79.899 Other long term (current) drug therapy
CPT/HCPCS: 80048; 82553; 84484; 85025; 93005; 96360

== ENCOUNTER 2019-05-12 14:48 | Outpatient (CLI) | payer MEDICARE ==
--- NOTE | 2019-05-12 15:18 | RAD ---
EXAM: Chest PA and lateral: HISTORY: Acute bronchitis COMPARISON: 03/02/2017 FINDINGS: Heart: Cardiomegaly Aorta: Unremarkable Pulmonary vessels: Normal Costophrenic angles: Small left-sided pleural effusion Lungs: Focal consolidation in the mid left lung. Pneumothorax: No pneumothorax Osseous structures: No osseous abnormalities IMPRESSION: Mid left lung consolidation, worrisome for aspiration or pneumonia. Continued surveillance is recomme nded
== END 2019-05-12 14:49 | disposition home or self-care (01) ==
LOC: BICRAD 14:48
PROVIDERS: ATTEND Family Medicine
DX: J20.9 Acute bronchitis, unspecified (principal)
CPT/HCPCS: 71046

== ENCOUNTER 2019-06-16 12:52 | Outpatient (CLI) | payer MEDICARE ==
--- NOTE | 2019-06-16 15:14 | RAD ---
RADIOGRAPH CHEST 2 VIEWS: DATE: 06/16/2019 HISTORY: 84-year-old male with dyspnea. FINDINGS: There is no air space density, pulmonary edema, pleural effusion, or pneumothorax. IMPRESSION: No acute pulmonary findings. jn [] POS: OFF
== END 2019-06-16 12:53 | disposition home or self-care (01) ==
LOC: RAD 12:52
PROVIDERS: ATTEND Internal Medicine Critical Care Medicine
DX: R06.00 Dyspnea, unspecified (principal)
CPT/HCPCS: 71046

== ENCOUNTER 2021-05-19 09:24 | Outpatient (CLI) | payer MEDICARE | END 2021-05-19 09:25 | disposition home or self-care (01) | LOC: BICULT 09:24 | PROVIDERS: ATTEND Family Medicine | DX: R10.9 Unspecified abdominal pain (principal); K76.0 Fatty (change of) liver, not elsewhere classified; R16.1 Splenomegaly, not elsewhere classified | CPT/HCPCS: 76700 ==

== ENCOUNTER 2022-05-02 13:36 | Outpatient (CLI) | payer MEDICARE ==
[2022-05-02 15:08] LABS: #Lymphocytes 1.6 thou/uL (1.20-3.40); #Monocytes 1.1 thou/uL (0.11-0.59); %Basophils 0.1 % (0.0-1.0); %Eosinophils 0.1 % (0.0-10.0); %Lymphocytes 13.8 % (21.0-51.0); Hemoglobin 11.8 g/dL (12.0-16.0); Mean Corpuscular HGB CONC 32.2 g/dL (32.0-36.0); Mean Corpuscular Hemoglobin 30.5 pg (27.0-31.0); Mean Corpuscular Volume 94.7 fl (78.0-98.0); Mean Platelet Volume 7.3 fL (7.4-10.4); Platelet Count 134 10x3/uL (130-400); RBC Distribution Width 13.2 % (11.5-14.5); Red Blood Cell (RBC) Count 3.85 mill/uL (4.20-5.40); White Blood Cell (WBC) Count 11.7 10x3/uL (4.8-10.8)
[2022-05-02 15:40] LABS: ALT (SGPT) 15 U/L (8-55); AST (SGOT) 19 U/L (5-34); Alkaline Phosphatase 50 U/L (40-110); Anion Gap 16 mmol/L (10-20); BUN (Urea Nitrogen) 33 mg/dL (9.8-20.1); Bilirubin, Total 1.8 mg/dL (0.2-1.2); Calc. Creatinine Clearance 0 mL/min (70-130); Carbon Dioxide 23 mmol/L (23-31); Chloride 101 mmol/L (98-107); Estimated GFR 35; Globulin 2.2 g/dL (2.4-3.5); Glucose 137 mg/dL (83-110); Potassium 4.4 mmol/L (3.5-5.1); Protein, Total 6.2 g/dL (5.8-8.1); Sodium 136 mmol/L (136-145)
== END 2022-05-02 13:37 | disposition home or self-care (01) ==
LOC: SCSRAD 13:36
PROVIDERS: ATTEND Family Medicine
DX: J20.9 Acute bronchitis, unspecified (principal); R91.8 Other nonspecific abnormal finding of lung field
CPT/HCPCS: 36415; 71046; 80053; 85025

== ENCOUNTER 2022-06-06 08:44 | Outpatient (CLI) | payer MEDICARE | END 2022-06-06 08:45 | disposition home or self-care (01) | LOC: NM 08:44 | PROVIDERS: ATTEND Psychiatry & Neurology Neurology | DX: G25.0 Essential tremor (principal) | CPT/HCPCS: 78803; A9584 ×2 ==

== ENCOUNTER 2022-07-19 12:29 | Outpatient (CLI) | payer MEDICARE ==
[~2022-07-19 12:29] MED LIST: Iopamidol-370 76% 500 ML 1 ML ONE
== END 2022-07-19 12:30 | disposition home or self-care (01) ==
LOC: BICCT 12:29
PROVIDERS: ATTEND Family Medicine
DX: R91.8 Other nonspecific abnormal finding of lung field (principal); E04.1 Nontoxic single thyroid nodule
CPT/HCPCS: 71260; 82565; Q9967

== ENCOUNTER 2022-09-25 14:30 | Outpatient (CLI) | payer MEDICARE | END 2022-09-25 14:31 | disposition home or self-care (01) | LOC: BICULT 14:30 | PROVIDERS: ATTEND Otolaryngology Plastic Surgery within the Head & Neck | DX: E04.1 Nontoxic single thyroid nodule (principal); E04.2 Nontoxic multinodular goiter | CPT/HCPCS: 76536 ==

== ENCOUNTER 2022-11-22 12:35 | Outpatient (CLI) | payer MEDICARE | END 2022-11-22 12:36 | disposition home or self-care (01) | LOC: BICCT 12:35 | PROVIDERS: ATTEND Internal Medicine Critical Care Medicine | DX: R93.89 Abnormal findings on diagnostic imaging of other specified body structures (principal); R16.1 Splenomegaly, not elsewhere classified; R59.0 Localized enlarged lymph nodes | CPT/HCPCS: 71250 ==